=== PATIENT | male | born 1955 | race Two or more races ===

== ENCOUNTER 2021-04-15 09:52 | Outpatient (CLI) | payer OTHER | END 2021-04-15 23:59 | disposition home or self-care (01) | LOC: LAB 09:52 | PROVIDERS: ATTEND Specialist | DX: Z01.812 Encounter for preprocedural laboratory examination (principal); Z20.822 Contact with and (suspected) exposure to COVID-19 | CPT/HCPCS: C9803; U0003 ==

== ENCOUNTER 2021-04-18 05:51 | Inpatient (IN) | payer OTHER ==
[~2021-04-18] VITALS: Ht 170.2 cm; Wt 75.0 kg
[2021-04-18 06:00] VITALS: BP 142/83
--- NOTE | 2021-04-18 06:00 | NUR ---
RN ADMITTING NOTE PATIENT ARRIVED TO UNIT, AMBULATORY, AO X 4, IN NO SIGN OF ACUTE DISTRESS, RESPIRATIONS EVEN AND UNLABORED, SATURATION AT 97% ON ROOM AIR. COMPREHENSIVE PHYSICAL ASSESSMENT AND PATIENT CARE DONE. NO SKIN ISSUES NOTED. IV LINE ESTABLISHED AT RFA 20G, PATENT AND FLUSHING WELL, NO S/S OF INFECTION OR INFILTRATION NOTED. PREOP CHECKLIST ACCOMPLISHED, CONSENT FOR PROCEDURE L TOTAL SHOULDER REPLACEMENT, ANESTHESIA AND BLOOD TRANSFUSION SIGNED, SAFETY MEASURES AND ISOLATION PRECAUTION IN PLACE, CALL LIGHT WITHIN REACH OF PATIENT, BED ON LOWEST POSITION, SIDE RAILS UP X 2. WILL CONTINUE MONITOR AND ASSESS THROUGHOUT THE SHIFT. WILL CARRY OUT MD ORDERS ACCORDINGLY. CLOUD ADMINISTRATOR MERCY MADE AWARE.
--- NOTE | 2021-04-18 07:13 | NUR ---
RN NOTE RECIEVED CALL FROM OR. PT CONSENTS AND PREPROCEDURE CHECKED AND IN CHART. PT ON RA AND IN STABLE CONDITION. WILL CONTINUE TO MONITOR
[2021-04-18] MEDS ORDERED: BACITRACIN 50000 UNITS/VIAL ONE (07:18)
[2021-04-18] MEDS ORDERED: BUPIVACAINE 0.5 % PF 150 MG/30 ML VIAL ONE (07:18)
[2021-04-18] MEDS ORDERED: ANESTHESIA TRAY IN PYXIS 1 EA TRAY MC ONE (07:18)
--- NOTE | 2021-04-18 07:20 | NUR ---
RN OPENING NOTE PT AWAKE IN BED. IN STABLE CONDITION. LABS AND ORDERS REVIEWED. IV PRESENT AND FLUSHING WELL. WILL CONTINUE TO MONITOR.
[2021-04-18] MEDS ORDERED: FENTANYL PF 250MCG/5ML AMPUL ONE (07:42)
[2021-04-18] MEDS ORDERED: ROCURONIUM BROMIDE 50 MG/5 ML ONE (07:42)
[2021-04-18] MEDS ORDERED: MIDAZOLAM HCL 2 MG/2ML VIAL ONE (07:42)
[2021-04-18 08:00] VITALS: BP 130/73
[2021-04-18] MEDS ORDERED: CLINDAMYCIN 900 MG/6 ML VIAL ONE (08:20)
[2021-04-18] MEDS ORDERED: TRANEXAMIC ACID 3,000 MG in SODIUM CHLORIDE IRRIG SOLUTION 70 ML IR ONE (08:30)
[2021-04-18 09:00] VITALS: BP 130/73
[2021-04-18] MEDS ORDERED: ONDANSETRON HCL/PF 4 MG/2 ML VIAL ONE (10:14)
[2021-04-18] MEDS ORDERED: FENTANYL PF 100MCG/2ML AMPUL ONE (10:22)
[2021-04-18] MEDS ORDERED: LEVOFLOXACIN 500 MG /D5W 100ML 500 MG in PREMIX 1 EA IV ONE (12:00)
[2021-04-18] MEDS ORDERED: HYDROMORPHONE 1 MG/1 ML DISP.SYRIN SQ ONE (12:14)
[2021-04-18] MEDS ORDERED: TAMSULOSIN 0.4 MG CAP.SR.24H PO ONE (12:14)
[2021-04-18] MEDS ORDERED: ONDANSETRON HCL/PF 4 MG/2 ML VIAL IV ONE (12:14)
[2021-04-18] MEDS ORDERED: CLONIDINE HCL 0.1 MG TABLET PO PRN (12:30)
[2021-04-18] MEDS ORDERED: MAG HYDROX/AL HYDROX/SIMETH 30 ML UDC PO PRN (12:30)
[2021-04-18] MEDS ORDERED: ONDANSETRON HCL/PF 4 MG/2 ML VIAL IV PRN (12:30)
[2021-04-18] MEDS ORDERED: MENTHOL/CETYLPYRD (CEPACOL) 1 LOZ LOZENGE PO PRN (12:30)
[2021-04-18] MEDS ORDERED: diphenhydrAMINE HCL 25 MG CAPSULE PO PRN (12:30)
[2021-04-18] MEDS: CLINDAMYCIN 600 MG in IV D5W 50 ML IV SCH ×2 (15:13→20:47)
[2021-04-18] MEDS: oxyCODONE IR immediate release 5 MG PO PRN ×2 (15:21→20:57)
[2021-04-18 16:00] VITALS: BP 111/67
[2021-04-18] MEDS: DOCUSATE SODIUM 100 MG CAPSULE PO SCH (16:31)
[2021-04-18] MEDS: HYDROMORPHONE 1 MG/1 ML DISP.SYRIN SQ PRN (16:31)
--- NOTE | 2021-04-18 18:26 | NUR ---
RN NOTE COLACE CAPSULE CONTAMINATED. SECOND COLACE PULLED FROM PYXIS AND GIVEN TO PT.
--- NOTE | 2021-04-18 18:29 | NUR ---
RN CLOSING NOTE PT RESTING IN BED AWAKE. ON RA WITH NO SOB OR RESPIRATORY DISTRESS PRESENT. A/O X4 FAROESE AND NEPALI SPEAKING. NO COMPLAINT OF PAIN OR NAUSEA PRESENT. NO RESIDENTIAL NURSE PRESENT. NO EDEMA PRESENT. ON BEDREST, SELF AMBULATORY WITH BATHROOM PRIVILEGES. SKIN IS INTACT. PT IS S/P REVERSE L SHOULDER ARTHROSCOPY DONE BY DR FRAGOSO. ON CARDIAC DIET. IV PRESENT ON R F 20G AND FLUSHES WELL. LABS AND ORDERS REVIEWED. MED GIVEN PER PROTOCOL. SAFETY MEASURES IN PLACE. SIDE RAILS RAISED. BED LOWERED. CALL LIGHT WITHIN REACH. WILL CONTINUE TO MONITOR. WILL GIVE REPORT TO NIGHT NURSE FOR DAVID.
--- NOTE | 2021-04-18 19:16 | NUR ---
CONTINUITY OF CARE Family at bedside, patient in bed, awake. A/O x4. Left shoulder incision with surgical gauze, no bleeding. S/P rotator cuff Arthroplasty left shoulder today, no c/o pain at this time. Ongoing IVF. Call light within reach.
[2021-04-18 20:00] VITALS: BP 111/70
[2021-04-18] MEDS: FAMOTIDINE (20 MG) 20 MG TABLET PO SCH (20:56)
--- NOTE | 2021-04-18 20:57 | NUR ---
PAIN Patient ambulated to the bathroom, back to bed. Patient c/o left shoulder pain 02/28. Given Oxycodone IR, will reassess.
[2021-04-18] MEDS: IV D5/0.45 NACL 1,000 ML IV PRN (21:04)
[2021-04-18] MEDS ORDERED: TAMSULOSIN 0.4 MG CAP.SR.24H PO SCH (22:00)
[2021-04-19] MEDS: HYDROMORPHONE 1 MG/1 ML DISP.SYRIN SQ PRN (00:31)
--- NOTE | 2021-04-19 00:31 | NUR ---
PAIN Patient ambulated to the bathroom, back to bed. Patient c/o left shoulder pain 04/30. Given SQ Dilaudid will reassess.
[2021-04-19] MEDS: CLINDAMYCIN 600 MG in IV D5W 50 ML IV SCH (03:16)
[2021-04-19] MEDS: oxyCODONE IR immediate release 5 MG PO PRN ×2 (04:05→07:14)
--- NOTE | 2021-04-19 04:05 | NUR ---
PAIN Patient in bed, c/o left shoulder pain 02/28. Given Oxycodone IR, will reassess.
--- NOTE | 2021-04-19 06:36 | NUR ---
END OF SHIFT REPORT Patient is A/O x4. Tolerating room air. Ongoing IVF. IV Abx completed Afebrile. Left shoulder dressing intact. Left shoulder pain improved with Oxy IR and Dilaudid. Patient ambulated to the bathroom. No c/o N/V. Dr. Tong following for pain management. Will endorse to oncoming RN.
[2021-04-19] MEDS: IV D5/0.45 NACL 1,000 ML IV PRN (06:43)
--- NOTE | 2021-04-19 07:14 | NUR ---
PAIN Patient ambulated to the bathroom, back to bed. Patient c/o left shoulder pain 02/28. Given Oxy IR, jessica N/V. Will reassess level of pain.
--- NOTE | 2021-04-19 07:51 | NUR ---
RN OPENING NOTE PT RESTING IN BED AWAKE. ON RA WITH NO SOB OR RESPIRATORY DISTRESS PRESENT. A/O X4 FAROESE AND KINYARWANDA SPEAKING. NO COMPLAINT OF PAIN OR NAUSEA PRESENT. NO DIRECT CASTING OPERATOR PRESENT. NO EDEMA PRESENT. ON BEDREST, SELF AMBULATORY WITH BATHROOM PRIVILEGES. SKIN IS INTACT. PT IS S/P REVERSE L SHOULDER ARTHROSCOPY DONE BY DR FRAGOSO. ON CARDIAC DIET. IV PRESENT ON R F 20G AND FLUSHES WELL. LABS AND ORDERS REVIEWED. SAFETY MEASURES IN PLACE. SIDE RAILS RAISED. BED LOWERED. CALL LIGHT WITHIN REACH. WILL CONTINUE TO MONITOR.
[2021-04-19] MEDS ORDERED: ASPIRIN 325 MG TABLET PO SCH (09:00)
[2021-04-19] MEDS ORDERED: TAMSULOSIN 0.4 MG CAP.SR.24H PO SCH (09:00)
[2021-04-19] MEDS ORDERED: oxyCODONE IR immediate release 5 MG PO ONE (10:00)
[2021-04-19] MEDS: DOCUSATE SODIUM 100 MG CAPSULE PO SCH (10:22)
[2021-04-19] MEDS: FAMOTIDINE (20 MG) 20 MG TABLET PO SCH (10:22)
[2021-04-19] MEDS ORDERED: HYDROMORPHONE 1 MG/1 ML DISP.SYRIN SQ ONE (12:00)
--- NOTE | 2021-04-19 13:04 | NUR ---
PHOTOGRAPHIC SUPERVISOR NOTE PT DISCHARGED HOME VIA PRIVATE CAR ACCOMPANIED BY FAMILY. NO NEW PRESCRIPTIONS PRESCRIBED BY MD. Ryan WITH DR FRAGOSO IN 7-10 DAYS EDUCATED TO PT. SKIN IS INTACT. BELONGINGS CHECKED AND GIVEN TO PT. IV LINE REMOVED. ID BAND REMOVED. V/S STABLE. PT ESCORTED VIA WHEELCHAIR TO VEHICLE ACCOMPANIED BY STAFF MEMBER.
== END 2021-04-19 13:00 | disposition home or self-care (01) | DRG 483 ==
LOC: DS 05:51 → MED 05:54
PROVIDERS: ADMIT Nurse Practitioner Acute Care; ATTEND Nurse Practitioner Acute Care
PROC: 0RRK00Z Replacement of Left Shoulder Joint with Reverse Ball and Socket Synthetic Substitute, Open Approach (ICD-10-PCS; principal; 2021-04-18)
DX: M12.812 Other specific arthropathies, not elsewhere classified, left shoulder (principal); I10 Essential (primary) hypertension; E78.00 Pure hypercholesterolemia, unspecified; Z98.890 Other specified postprocedural states; E78.5 Hyperlipidemia, unspecified; X58.XXXA Exposure to other specified factors, initial encounter; Z88.0 Allergy status to penicillin; Z88.2 Allergy status to sulfonamides
CPT/HCPCS: 88305-TC; 88311-TC; A4216; A4217; A6209; C1776; G0378; J1100; J1170; J1885; J1956; J2250; J2405; J2704; J3010; J3490; J7042; J7060